=== PATIENT | female | born 1975 | race Caucasian/White ===

== ENCOUNTER 2018-05-10 08:58 | Observation (INO) | payer OTHER ==
[~2018-05-10] VITALS: Ht 175.3 cm; Wt 89.6 kg
[~2018-05-10 08:58] MED LIST: AMIT50TA14 PO; DICY10CA88 PO; HYDR-3973 PO; OXYC10TA47 PO; PROC-8 PO; TRAM50TA2 PO; TRAZ-89 PO; [UNRECOGNIZED DRUG - CODE] PO
[2018-05-10 09:18] LABS: BASOPHILS % (AUTO) 0.3 % (0-1); EOSINOPHILS # (AUTO) 0.1 X10'3 (0-0.9); EOSINOPHILS % (AUTO) 2.2 % (0-6); HEMATOCRIT 37.9 % (35.0-45.0); HEMOGLOBIN 13.2 g/dl (12.0-16.0); LYMPHOCYTES % (AUTO) 15.6 % (21-51); MEAN CORPUSCULAR HEMOGLOBIN 32.4 PG (27.0-31.0); MEAN CORPUSCULAR HGB CONC 34.9 % (33.0-36.5); MEAN CORPUSCULAR VOLUME 92.8 FL (78-98); MEAN PLATELET VOLUME 8.6 FL (7.4-10.4); MONOCYTES # (AUTO) 0.4 X10'3 (0-0.9); MONOCYTES % (AUTO) 5.8 % (2-12); NEUTROPHILS # (AUTO) 5.1 X10'3 (1.8-7.7); NEUTROPHILS % (AUTO) 76.1 % (42-75); PLATELET COUNT 183 X10'3 (140-440); RED BLOOD COUNT 4.08 X10'6 (4.20-5.60); RED CELL DISTRIBUTION WIDTH 13.8 % (11.5-14.5); WHITE BLOOD COUNT 6.7 X10'3 (4.5-11.0)
[2018-05-10 09:28] LABS: PARTIAL THROMBOPLASTIN TIME 26 SECONDS (22-32); PROTHROMBIN TIME 10.1 SECONDS (9.0-12.0)
[2018-05-10 09:36] LABS: ALANINE AMINOTRANSFERASE 19 U/L (12-78); ALBUMIN 3.8 G/DL (3.4-5.0); ALBUMIN/GLOBULIN RATIO 1.2 (1.1-1.5); ALKALINE PHOSPHATASE 38 IU/L (46-116); ANION GAP 9 (8-16); ASPARTATE AMINO TRANSFERASE 15 U/L (10-37); BILIRUBIN,TOTAL 0.3 MG/DL (0.1-1.0); BLOOD UREA NITROGEN 10 MG/DL (7-18); BUN/CREATININE RATIO 13.2 (6.6-38.0); CALCIUM 9.1 MG/DL (8.5-10.1); CHLORIDE 101 MMOL/L (99-107); CREATININE 0.76 MG/DL (0.40-0.90); GLUCOSE 123 MG/DL (70-104); POTASSIUM 3.9 MMOL/L (3.5-5.1); SODIUM 139 MMOL/L (135-145); TOTAL CARBON DIOXIDE 28.9 MMOL/L (24-32); TOTAL PROTEIN 7.1 G/DL (6.4-8.2); eGFR 84 ML/MIN
[2018-05-10] MEDS ORDERED: morphine 4 MG/ML inj SYRINge IV ONE (09:55)
[2018-05-10] MEDS ORDERED: aspirin 325mg tablet PO ONE (09:55)
[2018-05-10] MEDS ORDERED: ondansetron/PF 4mg/2ml inj IV ONE (09:55)
[2018-05-10] MEDS ORDERED: magnesium 4gm in 100ml NS 100 ML IV PRN (10:00)
[2018-05-10] MEDS ORDERED: mag hydrox/Alum hydrox/simeth 30ml oral suspension PO PRN (10:00)
[2018-05-10] MEDS ORDERED: potassium Cl 20 mEq SR tablet PO PRN ×2 (10:00)
[2018-05-10] MEDS ORDERED: magnesium 1gm/100ml D5W IVPB 100 ML IV PRN (10:00)
[2018-05-10] MEDS ORDERED: HYDROcodone/acetaminophen 5mg/325mg tablet PO PRN (10:00)
[2018-05-10] MEDS ORDERED: magnesium hydroxide 30ml (MOM) UD suspension PO PRN (10:00)
[2018-05-10] MEDS ORDERED: acetaminophen 325mg tablet PO PRN (10:00)
[2018-05-10] MEDS ORDERED: magnesium Cl slow-release 64mg tablet PO PRN (10:00)
[2018-05-10] MEDS ORDERED: ondansetron/PF 4mg/2ml inj IV PRN (10:00)
[2018-05-10] MEDS ORDERED: potassium Cl 40MEQ/NS 500ml 500 ML IV PRN ×2 (10:00)
[2018-05-10] MEDS ORDERED: regadenoson 0.4mg/5ml syringe IV PRN (10:15)
[2018-05-10] MEDS ORDERED: proCHLORperazine 10 MG/2 ml inj IV ONE (10:15)
[2018-05-10] MEDS ORDERED: nitroGLYCERIN 0.4mg SUBLingual tab SL PRN (10:15)
[2018-05-10] MEDS ORDERED: CAFFEINE CITRATE 60 MG/3 ML injection vial IV PRN (10:15)
[2018-05-10] MEDS ORDERED: metoprolol tartrate 1mg/ml inj IV PRN (10:15)
[2018-05-10] MEDS ORDERED: PARO40TA4 PO (10:30)
[2018-05-10] MEDS ORDERED: AMLO2.5T PO (10:30)
[2018-05-10 10:33] LABS: HEMOGLOBIN A1C 5.7 % (4.5-6.2)
[2018-05-10] MEDS: morphine 4 MG/ML inj SYRINge IV PRN ×3 (11:37→19:31)
[2018-05-10 12:15] VITALS: BP 130/80
[2018-05-10] MEDS ORDERED: TRAZ-89 PO (12:52)
[2018-05-10] MEDS ORDERED: TRAZ-143 PO (12:52)
[2018-05-10] MEDS ORDERED: traMADol 50MG tablet PO PRN (13:55)
[2018-05-10] MEDS: HYDROcodone/acetaminophen 10/325mg tab PO PRN (17:35)
[2018-05-10 19:00] VITALS: BP 138/89
[2018-05-10] MEDS ORDERED: traZODone 50mg tablet PO SCH (21:00)
[2018-05-10 23:00] VITALS: BP 114/70
[2018-05-11] VITALS (10 sets, daily range): BP systolic 104–141; BP diastolic 56–89
[2018-05-11 05:06] LABS: BASOPHILS % (AUTO) 0.4 % (0-1); EOSINOPHILS # (AUTO) 0.1 X10'3 (0-0.9); EOSINOPHILS % (AUTO) 2.4 % (0-6); HEMATOCRIT 36.6 % (35.0-45.0); HEMOGLOBIN 12.6 g/dl (12.0-16.0); LYMPHOCYTES # (AUTO) 1.1 X10'3 (1.1-4.8); LYMPHOCYTES % (AUTO) 25.5 % (21-51); MEAN CORPUSCULAR HEMOGLOBIN 31.7 PG (27.0-31.0); MEAN CORPUSCULAR HGB CONC 34.5 % (33.0-36.5); MEAN CORPUSCULAR VOLUME 92.2 FL (78-98); MONOCYTES # (AUTO) 0.3 X10'3 (0-0.9); MONOCYTES % (AUTO) 6.4 % (2-12); NEUTROPHILS # (AUTO) 2.9 X10'3 (1.8-7.7); NEUTROPHILS % (AUTO) 65.3 % (42-75); PLATELET COUNT 170 X10'3 (140-440); RED BLOOD COUNT 3.97 X10'6 (4.20-5.60); RED CELL DISTRIBUTION WIDTH 13.7 % (11.5-14.5); WHITE BLOOD COUNT 4.5 X10'3 (4.5-11.0)
[2018-05-11 05:26] LABS: ALBUMIN 3.2 G/DL (3.4-5.0); CHLORIDE 105 MMOL/L (99-107); GLUCOSE 92 MG/DL (70-104); POTASSIUM 3.7 MMOL/L (3.5-5.1)
[2018-05-11 05:59] LABS: ALANINE AMINOTRANSFERASE 16 U/L (12-78); ALBUMIN/GLOBULIN RATIO 1.1 (1.1-1.5); ALKALINE PHOSPHATASE 32 IU/L (46-116); ANION GAP 7 (8-16); ASPARTATE AMINO TRANSFERASE 10 U/L (10-37); BILIRUBIN,TOTAL 0.3 MG/DL (0.1-1.0); BLOOD UREA NITROGEN 13 MG/DL (7-18); BUN/CREATININE RATIO 18.6 (6.6-38.0); CALCIUM 8.6 MG/DL (8.5-10.1); CHOL/HDL RATIO 5.9 (0.00-4.99); CHOLESTEROL 202 MG/DL (0-200); HDL CHOLESTEROL 34 MG/DL (35-60); LDL CHOLESTEROL 124 MG/DL (50-100); MAGNESIUM 2.1 MG/DL (1.5-2.4); SODIUM 140 MMOL/L (135-145); TOTAL CARBON DIOXIDE 28.5 MMOL/L (24-32); TOTAL PROTEIN 6.2 G/DL (6.4-8.2); TRIGLYCERIDES 286 MG/DL (20-135); eGFR > 90 ML/MIN
[2018-05-11] MEDS: HYDROcodone/acetaminophen 10/325mg tab PO PRN ×2 (07:10→12:40)
[2018-05-11] MEDS ORDERED: amLODIPine 2.5mg tablet PO SCH (08:00)
[2018-05-11] MEDS ORDERED: K and/or MAG REPLACEMENT MC SCH (08:00)
[2018-05-11] MEDS ORDERED: enoxaparin 40mg/0.4ml syringe SUBCUT SCH (08:00)
[2018-05-11] MEDS ORDERED: PARoxetine 20mg tablet PO SCH (08:00)
[2018-05-11] MEDS ORDERED: non-formulary drug (Paroxetine HCl 1 TAB) PO SCH (08:00)
[2018-05-11] MEDS ORDERED: regadenoson 0.4mg/5ml syringe IV ONE (09:56)
[2018-05-11] MEDS ORDERED: CAFFEINE CITRATE 60 MG/3 ML injection vial IV ONE (09:56)
[2018-05-11] MEDS: morphine 4 MG/ML inj SYRINge IV PRN ×2 (11:13→15:09)
[2018-05-11] MEDS ORDERED: ketorolac tromethamine 15mg/ml inj. IV ONE (15:00)
[2018-05-11] MEDS ORDERED: GEMF600T PO (15:07)
[2018-05-11] MEDS ORDERED: ASPI-611 PO (15:07)
[2018-05-11] MEDS ORDERED: ATOR20TA66 PO (15:07)
[2018-05-11] MEDS ORDERED: gemfibrozil 600mg tablet PO SCH (20:00)
[2018-05-12] MEDS ORDERED: atorvastatin 20mg tablet PO SCH (08:00)
== END 2018-05-11 16:46 | disposition home or self-care (01) ==
LOC: ER 08:58 → UNDOADMIN 09:56 → ED HOLD 09:56 → PCU 3S 11:55
PROVIDERS: ADMIT Internal Medicine; ATTEND Internal Medicine
DX: R07.89 Other chest pain (principal); E78.5 Hyperlipidemia, unspecified; F17.210 Nicotine dependence, cigarettes, uncomplicated; I25.10 Atherosclerotic heart disease of native coronary artery without angina pectoris; E66.01 Morbid (severe) obesity due to excess calories; I48.91 Unspecified atrial fibrillation; M79.7 Fibromyalgia; M54.9 Dorsalgia, unspecified; G89.29 Other chronic pain; I25.2 Old myocardial infarction; I10 Essential (primary) hypertension; Z79.82 Long term (current) use of aspirin
CPT/HCPCS: 36415; 71045; 78452; 80053; 80061; 83036; 83735; 84484; 85025; 85610; 85730; 87070; 93005; 93017; 93306; 96374; 96375; 96376; 99285; A9500; G0378; J1885; J2270; J2405; J1650

== ENCOUNTER 2018-07-08 11:31 | Emergency (ER) | payer OTHER ==
[~2018-07-08] VITALS: Ht 175.3 cm; Wt 81.8 kg
[~2018-07-08 11:31] MED LIST changes: -AMIT50TA14 PO; +AMLO2.5T3 PO; +ATOR20TA66 PO; -DICY10CA88 PO; +GEMF600T PO; -OXYC10TA47 PO; +PARO40TA4 PO; -PROC-8 PO; +TRAZ-218 PO; -TRAZ-89 PO; -[UNRECOGNIZED DRUG - CODE] PO
[2018-07-08] MEDS ORDERED: buPROPion 75mg tablet PO STA (12:29)
[2018-07-08] MEDS ORDERED: buprenorphine/naloxone 2-0.5mg sublingual tablet SL STA (12:37)
[2018-07-08] MEDS ORDERED: buprenorphine/naloxone 8mg/2mg SL tablet SL STA ×3 (12:40→13:32)
[2018-07-08 13:17] VITALS: BP 157/95
[2018-07-08] MEDS ORDERED: ondansetron 4mg rapidly disintigrating tab PO ONE (13:35)
[2018-07-08] MEDS ORDERED: ONDA8TAB9 PO (13:38)
== END 2018-07-08 14:05 | disposition home or self-care (01) ==
LOC: ER 11:31
DX: F11.23 Opioid dependence with withdrawal (principal); I10 Essential (primary) hypertension; I25.2 Old myocardial infarction; G89.29 Other chronic pain; I48.91 Unspecified atrial fibrillation; Z91.018 Allergy to other foods; Z91.010 Allergy to peanuts; Z88.8 Allergy status to other drugs, medicaments and biological substances; Z79.899 Other long term (current) drug therapy
CPT/HCPCS: 99283

== ENCOUNTER 2019-02-07 07:29 | Emergency (ER) | payer MEDICAID, OTHER ==
[~2019-02-07] VITALS: Ht 175.3 cm; Wt 81.8 kg
[~2019-02-07 07:29] MED LIST changes: -AMLO2.5T3 PO; +AMLO2.5T5 PO; +ONDA8TAB9 PO
[2019-02-07] MEDS ORDERED: normal saline 1000ML IV soln IVB ONE (08:45)
[2019-02-07] MEDS ORDERED: proCHLORperazine 10 MG/2 ml inj IV ONE (08:45)
[2019-02-07] MEDS: morphine 4 MG/ML inj SYRINge IV PRN ×2 (09:18→10:24)
[2019-02-07 09:24] LABS: BASOPHILS % (AUTO) 0.6 % (0-1); EOSINOPHILS % (AUTO) 0.7 % (0-6); HEMATOCRIT 37.3 % (35.0-45.0); HEMOGLOBIN 12.8 g/dl (12.0-16.0); LYMPHOCYTES # (AUTO) 1.3 X10'3 (1.1-4.8); MEAN CORPUSCULAR HEMOGLOBIN 31.2 PG (27.0-31.0); MEAN CORPUSCULAR HGB CONC 34.4 g/dL (33.0-36.5); MEAN CORPUSCULAR VOLUME 90.8 FL (78-98); MEAN PLATELET VOLUME 8.8 FL (7.4-10.4); MONOCYTES # (AUTO) 0.5 X10'3 (0-0.9); MONOCYTES % (AUTO) 7.5 % (2-12); NEUTROPHILS # (AUTO) 4.3 X10'3 (1.8-7.7); NEUTROPHILS % (AUTO) 70.2 % (42-75); PLATELET COUNT 161 X10'3 (140-440); RED BLOOD COUNT 4.11 X10'6 (4.20-5.60); RED CELL DISTRIBUTION WIDTH 14.1 % (11.5-14.5); WHITE BLOOD COUNT 6.2 X10'3 (4.5-11.0)
[2019-02-07 09:41] LABS: ALANINE AMINOTRANSFERASE 24 U/L (12-78); ALBUMIN 3.6 G/DL (3.4-5.0); ALBUMIN/GLOBULIN RATIO 1.2 (1.1-1.5); ALKALINE PHOSPHATASE 37 IU/L (46-116); ANION GAP 7 (8-16); ASPARTATE AMINO TRANSFERASE 14 U/L (10-37); BILIRUBIN,TOTAL 0.2 MG/DL (0.1-1.0); BLOOD UREA NITROGEN 9 MG/DL (7-18); BUN/CREATININE RATIO 12.2 (6.6-38.0); CALCIUM 8.7 MG/DL (8.5-10.1); CHLORIDE 104 MMOL/L (99-107); CREATININE 0.74 MG/DL (0.40-0.90); GLUCOSE 93 MG/DL (70-104); LIPASE 156 U/L (73-393); POTASSIUM 3.9 MMOL/L (3.5-5.1); SODIUM 138 MMOL/L (135-145); TOTAL CARBON DIOXIDE 26.6 MMOL/L (24-32); TOTAL PROTEIN 6.6 G/DL (6.4-8.2); eGFR 86 ML/MIN
[2019-02-07 10:10] LABS: CLARITY,URINE CLEAR (Clear); COLOR,URINE YELLOW (Yellow); GLUCOSE, URINE NEGATIVE (Neg); KETONES,URINE NEGATIVE (Neg); LEUKOCYTE ESTERASE ,URINE TRACE (Neg); NITRITES, URINE NEGATIVE (Neg); OCCULT BLOOD,URINE TRACE-LYSED (Neg); PH,URINE 7.5 (4.8-8.0); PROTEIN,URINE NEGATIVE (Neg); UROBILINOGEN,URINE 0.2 E.U/dL (0.2-1.0)
[2019-02-07 10:14] LABS: UA COLLECTION TYPE CLN CATCH MIDSTREAM; URINE HCG NEGATIVE (NEG)
[2019-02-07 10:15] LABS: RBC,URINE 0-2 /HPF (0-2); WBC,URINE 0-4 /HPF (0-4)
[2019-02-07 10:16] LABS: BACTERIA,URINE FEW /HPF (Neg); MUCUS STRANDS NONE SEEN /LPF (Neg); SQUAMOUS EPITHELIAL CELL,UR FEW /LPF (FEW)
[2019-02-07 10:25] VITALS: BP 116/51
== END 2019-02-07 10:41 | disposition home or self-care (01) ==
LOC: ER 07:29
DX: R10.31 Right lower quadrant pain (principal); I10 Essential (primary) hypertension; I48.91 Unspecified atrial fibrillation; I25.2 Old myocardial infarction; G89.29 Other chronic pain; M54.9 Dorsalgia, unspecified; Z88.6 Allergy status to analgesic agent; Z91.010 Allergy to peanuts; Z88.8 Allergy status to other drugs, medicaments and biological substances; Z91.018 Allergy to other foods
CPT/HCPCS: 36415; 74176; 80053; 81001; 81025; 83690; 85025; 85610; 87088; 96374; 96375; 96376; 99284; J0780; J2270; J7030

== ENCOUNTER 2019-03-19 11:39 | Emergency (ER) | payer MEDICAID ==
[~2019-03-19] VITALS: Ht 175.3 cm; Wt 81.8 kg
[~2019-03-19 11:39] MED LIST changes: -TRAZ-218 PO; +TRAZ-251 PO
[2019-03-19 12:12] LABS: BASOPHILS % (AUTO) 0.4 % (0-1); EOSINOPHILS # (AUTO) 0.1 X10'3 (0-0.9); EOSINOPHILS % (AUTO) 1.2 % (0-6); HEMATOCRIT 36.4 % (35.0-45.0); HEMOGLOBIN 12.8 g/dl (12.0-16.0); LYMPHOCYTES # (AUTO) 1.6 X10'3 (1.1-4.8); LYMPHOCYTES % (AUTO) 27.7 % (21-51); MEAN CORPUSCULAR HEMOGLOBIN 32.1 PG (27.0-31.0); MEAN CORPUSCULAR VOLUME 91.5 FL (78-98); MEAN PLATELET VOLUME 9.1 FL (7.4-10.4); MONOCYTES # (AUTO) 0.4 X10'3 (0-0.9); MONOCYTES % (AUTO) 6.5 % (2-12); NEUTROPHILS # (AUTO) 3.7 X10'3 (1.8-7.7); NEUTROPHILS % (AUTO) 64.2 % (42-75); PLATELET COUNT 159 X10'3 (140-440); RED BLOOD COUNT 3.98 X10'6 (4.20-5.60); RED CELL DISTRIBUTION WIDTH 13.7 % (11.5-14.5); WHITE BLOOD COUNT 5.8 X10'3 (4.5-11.0)
[2019-03-19 12:15] LABS: URINE HCG NEGATIVE (NEG)
[2019-03-19] MEDS ORDERED: fentaNYL/PF 50MCG/1 ML 2ML syringe IV ONE (12:20)
[2019-03-19] MEDS ORDERED: normal saline 1000ml 1,000 ML IV ONE (12:20)
[2019-03-19] MEDS ORDERED: ketorolac trometh. 30mg/ml inj. IV ONE (12:20)
[2019-03-19] MEDS ORDERED: acetaminophen 325mg tablet PO ONE (12:20)
[2019-03-19] MEDS ORDERED: proCHLORperazine 10 MG/2 ml inj IV ONE (12:20)
[2019-03-19 12:23] LABS: ALANINE AMINOTRANSFERASE 19 U/L (12-78); ALBUMIN 3.7 G/DL (3.4-5.0); ALBUMIN/GLOBULIN RATIO 1.2 (1.1-1.5); ALKALINE PHOSPHATASE 40 IU/L (46-116); AMYLASE 42 U/L (25-115); ANION GAP 8 (8-16); ASPARTATE AMINO TRANSFERASE 11 U/L (10-37); BILIRUBIN,TOTAL 0.1 MG/DL (0.1-1.0); BLOOD UREA NITROGEN 8 MG/DL (7-18); BUN/CREATININE RATIO 11.3 (6.6-38.0); CALCIUM 8.8 MG/DL (8.5-10.1); CHLORIDE 100 MMOL/L (99-107); CREATININE 0.71 MG/DL (0.40-0.90); GLUCOSE 127 MG/DL (70-104); LIPASE 188 U/L (73-393); POTASSIUM 3.6 MMOL/L (3.5-5.1); SODIUM 136 MMOL/L (135-145); TOTAL CARBON DIOXIDE 27.7 MMOL/L (24-32); TOTAL PROTEIN 6.8 G/DL (6.4-8.2); eGFR > 90 ML/MIN
[2019-03-19 12:31] LABS: CLARITY,URINE CLEAR (Clear); COLOR,URINE STRAW (Yellow); GLUCOSE, URINE NEGATIVE (Neg); KETONES,URINE NEGATIVE (Neg); LEUKOCYTE ESTERASE ,URINE NEGATIVE (Neg); NITRITES, URINE NEGATIVE (Neg); OCCULT BLOOD,URINE TRACE-INTACT (Neg); PH,URINE 6.5 (4.8-8.0); PROTEIN,URINE NEGATIVE (Neg); UROBILINOGEN,URINE 0.2 E.U/dL (0.2-1.0)
[2019-03-19 12:36] LABS: UA COLLECTION TYPE CLN CATCH MIDSTREAM
[2019-03-19 12:48] LABS: MUCUS STRANDS NONE SEEN /LPF (Neg); SQUAMOUS EPITHELIAL CELL,UR FEW /LPF (FEW)
[2019-03-19 12:49] LABS: BACTERIA,URINE FEW /HPF (Neg); RBC,URINE 0-2 /HPF (0-2); WBC,URINE NONE SEEN /HPF (0-4)
[2019-03-19] MEDS ORDERED: HYDROcodone/acetaminophen 10/325mg tab PO ONE (13:10)
[2019-03-19 13:44] VITALS: BP 115/61
== END 2019-03-19 13:46 | disposition home or self-care (01) ==
LOC: ER 11:40
DX: R10.84 Generalized abdominal pain (principal); G89.29 Other chronic pain; R11.2 Nausea with vomiting, unspecified; R50.9 Fever, unspecified; I48.91 Unspecified atrial fibrillation; I10 Essential (primary) hypertension; I25.2 Old myocardial infarction; Z90.49 Acquired absence of other specified parts of digestive tract; Z98.890 Other specified postprocedural states; Z91.018 Allergy to other foods; Z91.010 Allergy to peanuts; Z88.8 Allergy status to other drugs, medicaments and biological substances; Z79.899 Other long term (current) drug therapy
CPT/HCPCS: 36415; 80053; 81001; 81025; 82150; 83690; 85025; 85610; 96361; 96374; 96375; 99283; J0780; J1885; J3010; J7030

== ENCOUNTER 2021-04-30 11:02 | Emergency (ER) | payer MEDICAID ==
[~2021-04-30] VITALS: Ht 175.3 cm; Wt 86.4 kg
[2021-04-30 12:00] LABS: BASOPHILS % (AUTO) 0.3 % (0-1); EOSINOPHILS # (AUTO) 0.1 X10'3 (0-0.9); EOSINOPHILS % (AUTO) 2.2 % (0-6); HEMOGLOBIN 12.6 g/dl (12.0-16.0); LYMPHOCYTES # (AUTO) 1.7 X10'3 (1.1-4.8); LYMPHOCYTES % (AUTO) 30.2 % (21-51); MEAN CORPUSCULAR HEMOGLOBIN 31.4 PG (27.0-31.0); MEAN CORPUSCULAR HGB CONC 34.1 g/dL (33.0-36.5); MEAN CORPUSCULAR VOLUME 92.1 FL (78-98); MONOCYTES # (AUTO) 0.5 X10'3 (0-0.9); MONOCYTES % (AUTO) 8.7 % (2-12); NEUTROPHILS # (AUTO) 3.4 X10'3 (1.8-7.7); NEUTROPHILS % (AUTO) 58.6 % (42-75); PLATELET COUNT 199 X10'3 (140-440); RED BLOOD COUNT 4.02 X10'6 (4.20-5.60); WHITE BLOOD COUNT 5.7 X10'3 (4.5-11.0)
[2021-04-30 12:39] LABS: ALANINE AMINOTRANSFERASE 31 U/L (12-78); ALBUMIN 3.6 G/DL (3.4-5.0); ALBUMIN/GLOBULIN RATIO 1.1 (1.1-1.5); ALKALINE PHOSPHATASE 42 IU/L (46-116); ANION GAP 7 (8-16); ASPARTATE AMINO TRANSFERASE 27 U/L (10-37); BILIRUBIN,TOTAL 0.3 MG/DL (0.1-1.0); BLOOD UREA NITROGEN 15 MG/DL (7-18); BUN/CREATININE RATIO 18.3 (6.6-38.0); CALCIUM 8.8 MG/DL (8.5-10.1); CHLORIDE 101 MMOL/L (99-107); CREATININE 0.82 MG/DL (0.40-0.90); GLUCOSE 120 MG/DL (70-104); POTASSIUM 3.3 MMOL/L (3.5-5.1); SODIUM 138 MMOL/L (135-145); TOTAL CARBON DIOXIDE 29.9 MMOL/L (24-32); TOTAL PROTEIN 6.9 G/DL (6.4-8.2); eGFR 76 ML/MIN
[2021-04-30] MEDS ORDERED: aspirin 81mg tab.chew PO ONE (13:15)
[2021-04-30] MEDS: nitroGLYCERIN 0.4mg SUBLingual tab SL PRN ×2 (13:31→13:49)
[2021-04-30] MEDS ORDERED: ketorolac tromethamine 15mg/ml inj. IV ONE ×2 (14:35→15:55)
[2021-04-30 14:41] VITALS: BP 130/81
== END 2021-04-30 16:19 | disposition home or self-care (01) ==
LOC: ER 11:02
DX: R07.89 Other chest pain (principal); R11.0 Nausea; R06.02 Shortness of breath; I48.91 Unspecified atrial fibrillation; I10 Essential (primary) hypertension; I25.10 Atherosclerotic heart disease of native coronary artery without angina pectoris; G89.29 Other chronic pain; Z90.49 Acquired absence of other specified parts of digestive tract; Z98.890 Other specified postprocedural states; Z91.010 Allergy to peanuts; Z91.018 Allergy to other foods; Z88.8 Allergy status to other drugs, medicaments and biological substances; Z79.899 Other long term (current) drug therapy
CPT/HCPCS: 36415; 71045; 80053; 83880; 84484; 85025; 93005; 96374; 96376; 99285; J1885

== ENCOUNTER 2022-02-28 09:52 | Emergency (ER) | payer MEDICAID ==
[~2022-02-28] VITALS: Ht 175.3 cm; Wt 86.4 kg
[2022-02-28 10:04] VITALS: BP 134/87
[2022-02-28] MEDS ORDERED: LIDOcaine Viscous 15ml cup MM PRN (11:00)
[2022-02-28] MEDS ORDERED: ibuprofen 200mg tablet PO ONE (11:00)
[2022-02-28] MEDS ORDERED: acetaminophen 325mg tablet PO ONE (11:00)
[2022-02-28] MEDS ORDERED: FLUC150T PO (11:01)
== END 2022-02-28 11:13 | disposition home or self-care (01) ==
LOC: ER 09:53
DX: B37.9 Candidiasis, unspecified (principal); R50.9 Fever, unspecified; I48.91 Unspecified atrial fibrillation; I10 Essential (primary) hypertension; I25.2 Old myocardial infarction; G89.29 Other chronic pain; Z90.49 Acquired absence of other specified parts of digestive tract; Z98.890 Other specified postprocedural states; Z88.8 Allergy status to other drugs, medicaments and biological substances; Z91.010 Allergy to peanuts; Z91.018 Allergy to other foods; Z79.899 Other long term (current) drug therapy
CPT/HCPCS: 99284

== ENCOUNTER 2025-06-01 10:33 | Emergency (ER) | payer MEDICAID ==
[~2025-06-01] VITALS: Ht 175.3 cm; Wt 115.0 kg
[2025-06-01 10:37] VITALS: TEMP 97.7
[2025-06-01 11:32] LABS: MEAN PLATELET VOLUME 9.0 FL (7.4-10.4); RED CELL DISTRIBUTION WIDTH 16.5 % (11.5-14.5)
--- NOTE | 2025-06-01 11:43 | RADIOLOGY REPORT ---
EXAM: CT CT HEAD INDICATION: , trauma TECHNIQUE: CT of the head without intravenous contrast. Radiation Dose : 1. Head: CT Dose: CTDI volume is 73 mGy. Dose-length product is 1297 mGy*cm The dose indicators for CT are the volume Computed Tomography (CT) Dose Index (CTDIvol) and the Dose Length Product (DLP), and are measured in units of mGy and mGy-cm, respectively. These indicators are not patient dose, but values generated from the CT scanner acquisition factors. The report includes radiation exposure data for exposures received during this examination. COMPARISON: None FINDINGS: There is no evidence of acute intracranial hemorrhage, extra-axial collection, mass effect, midline s hift, herniation or hydrocephalus. The ventricles, sulci and cisterns are age appropriate. The washburn-white differentiation is intact. Patchy periventricular and subcortical white matter hypoattenuation is nonspecific but may be related to small vessel ischemic disease. The visualized paranasal sinuses and mastoid air cells are clear. Superficial hematoma is seen in the frontal scalp. Soft tissue swelling is seen in the left periorbit al region. Comminuted nasal bone fracture and left maxillary fracture is partially visualized. IMPRESSION: 1. No acute intracranial abnormality. 2. Comminuted nasal bone fracture and left maxillary fracture is partially visualized. Recommend christos elation with facial CT Radiation optimization: All CT scans at this facility use at least one of these dose optimization kelli hniques: automated exposure control mA and/or kV adjustment per patient size (includes targeted exam s where dose is matched to clinical indication) or iterative reconstruction.
[2025-06-01 11:44] LABS: CREATININE 0.71 MG/DL (0.40-0.90); ETHANOL < 10 MG/DL (<10); TOTAL CARBON DIOXIDE 30.8 MMOL/L (24-32); eCRCL 102 ML/MIN; eGFR 88 ML/MIN
[2025-06-01 11:46] LABS: APTT 27 SECONDS (22-32); INR 1.1 INR
--- NOTE | 2025-06-01 11:49 | RADIOLOGY REPORT ---
EXAM: CT CT CERVICAL SPINE INDICATION: , trauma EXAM DATE: 06/01/2025 11:16 AM COMPARISON: None TECHNIQUE: Multiple axial CT images of the cervical spine were obtained using bone algorithm. Axial a nd coronal reformatting was done. Bone and soft tissue windows were reviewed. Radiation Dose Information: CT Dose: CTDI volume is 20 mGy. Dose-length product is 572 mGy*cm FINDINGS: The cervical alignment is intact. No acute cervical spine fracture is identified. The vertebral body heights are intact. No suspicious osseous lesions are identified. Moderate degenerative changes throughout the cervical spine There is no prevertebral soft tissue swelling. IMPRESSION: 1. No evidence of acute cervical spine fracture or traumatic malalignment. 2. Moderate degenerative changes throughout the cervical spine. All CT scans at this medical facility are performed using dose modulation techniques as appropriate t o a performed exam including the following: Automated exposure control was utilized; adjustment of th e MA and/or KV according to patient size; and use of iterative reconstruction technique.
--- NOTE | 2025-06-01 12:17 | RADIOLOGY REPORT ---
CT CT FACIAL BONES/SOFT TISSUE INDICATION: , trauma EXAM DATE: 06/01/2025 11:17 AM COMPARISON: CT CT HEAD on DOS: 06/01/25 RADIATION DOSE: CTDIvol: 54 mGy, DLP: 875 mGy*cm PROCEDURE: Using the CT scanner, contiguous noncontrast scans were obtained from above the orbital ri ms to below the mandible. Coronal and sagittal reformatted images were then generated. All CT scans at this medical facility are performed using dose modulation techniques as appropriate t o a performed exam including the following: Automated exposure control was utilized; adjustment of th e MA and/or KV according to patient size; and use of iterative reconstruction technique. FINDINGS: Comminuted nasal bone fracture and depressed fracture of the orbital floor with adjacent le ft periorbital and malar soft tissue contusion. Left maxillary and ethmoid sinus fluid opacification is noted. The mastoid air cells and middle ear cavities are normally aerated. IMPRESSION: Comminuted nasal bone fracture and depressed fracture of the orbital floor with adjacent left periorb ital and malar soft tissue contusion.
--- NOTE | 2025-06-01 14:11 | Physician Documentation ---
History of Present Illness ~ Chief Complaint: Mechanical Fall Stated Complaint: FALL Time Seen by MD: 14:10 OK to notify your PCP?: Yes Primary Medical Doctor: paola Source: patient, RN/MD, EMS, RN notes reviewed, EMS notes reviewed, old records Mode of Arrival: EMS Exam Limitations: no limitations HPI This patient was involved in a trauma. She slipped fell on her flip-flops had some items in her hand and was unable to protect herself and landed directly on the cement floor it was outside it is dirty she has some injuries to her forehead as well as left upper brow and left inner eyelid. She has raccoon eyes bilaterally swollen nose C-collar with blood in the nose. There was no loss of consciousness. The patient is in severe pain. Patient denies any loss of consciousness or amnesia. She denies any headache but he is having severe facial pain as well as some active bleeding mostly from the left eye. Patient reports some double vision. Tetanus within 5 Years?: Yes Medication Reconciliation Allergies: Coded Allergies: pineapple (Verified Allergy, Severe, throat swells and can not breath, 07/15/23) hazelnut (Verified Allergy, Unknown, 07/15/23) hydrocodone (Verified Allergy, Unknown, 07/15/23) peanut (Unverified Allergy, Unknown, rash, throat itches , 07/15/23) prednisone (Verified Allergy, Unknown, 07/15/23) ondansetron HCl (Verified Adverse Reaction, Unknown, VOMITING, 07/15/23) Scheduled Amlodipine Besylate (Amlodipine Besylate), 1 TAB PO DAILY, (Reported) Atorvastatin Calcium (Atorvastatin Calcium), 20 MG PO DAILY Doxycycline Hyclate (Doxycycline Hyclate), 1 CAP PO Q12H Gemfibrozil (Lopid), 600 MG PO BID Ondansetron (Zofran Odt), 1 TAB PO Q8H Paroxetine HCl (Paroxetine HCl), 1 TAB PO DAILY, (Reported) Trazodone HCl (Trazodone HCl), 1 TAB PO HS, (Reported) Scheduled PRN Hydrocodone Bit/Acetaminophen (Hydrocodone-Apap 10-325 Tablet), 1 TAB PO Q4H PRN for moderate or severe pain, (Reported) Hydrocodone Bit/Acetaminophen (Hydrocodone-Apap 10-325 Tablet), 1 TAB PO TID PRN PRN for pain Tramadol HCl (Tramadol HCl), 50 MG PO Q6H PRN for mild to moderate pain, (Reported) Past Medical History Past Medical History: Atrial Fibrillation, Hypertension, Myocardial Infarction, Chronic Back Pain, Fibromyalgia Past Surgical History: abdominal surgery, cholecystectomy Other Past Surgical History: angiogram with no intervention Patient History: (CABG) Coronary artery bypass grafting MOTHER, Onset: (CHF) Congestive heart failure MOTHER, Onset: (Cancer) Malignant carcinoid tumor FATHER, , Age: 78, Cause: Cancer, Onset: (DM Type 2) Diabetes mellitus type 2 FATHER, , Age: 78, Cause: Cancer, Onset: Alcohol Use: None Drug Use: none Lives with: Family Lives In: Home Review of Systems All Other Systems at this time: Reviewed and Negative Physical Exam Vital Signs: RN Vital Signs have been reviewed: Yes, Temperature: 97.7, Source: Temporal, Heart Rate: 68, Respiratory Rate: 13, BP: 113/73, Pulse Oximetry: 96, Weight: 115.000 Oxygen Flow Rate: 2.0 Physical Exam General: The patient is well developed, well nourished, nontoxic appearing and is in moderate acute distress. Skin: [place], warm and dry with no rashes. HEENT: Head was normocephalic and traumatic. Eyes - pupils equal, round, reactive to light and accommodation. Extraocular movements were intact. Conjunctivae were nonicteric left inferior lateral conjunctiva has a conjunctival hematoma.. The mouth and oropharynx were clear with moist mucous membranes. There were no pharyngeal exudates or erythema. Nose is slightly deviated with dried blood in bilateral nares as well as bilateral ecchymosis raccoon eyes is noted greater on the right than the left. Multiple lacerations are noted. Left forehead has an 8 cm laceration. Left upper eyelid irregular edges also oblique he has a 6 cm laceration left lower eyelid medial aspect almost involving the nasolacrimal duct is 4 cm. Neck: Supple and nontender. There was no jugular venous distention, lymphadenopathy, thyromegaly or masses. In a C-collar Chest: Clear to auscultation bilaterally without wheezes, rales or rhonchi. No accessory muscle use. No dullness to percussion. Heart: Rate regular and rhythmic. S1, S2. No murmurs. Palpation of the chest wall was normal. No rubs or thrills. Abdomen: Soft, nontender and nondistended. Positive bowel sounds. No guarding or rebound. No hepatosplenomegaly or palpable masses. Extremities: No cyanosis, clubbing or edema. The patient moves all extremities. Pulses were equal and symmetric. Neurologic: Motor sensory grossly intact Psychologic: The patient was oriented to person, place and time. The patient demonstrated appropriate judgement and insight. Procedures Laceration Repair #1: Location: medial forehead Length (cm): 5 Anesthesia: Lidocaine w/ Epi Volume Anesthetic (mls): 2 Prep: irrigated by nurse, irrigated by physician Debrided: minimal Undermining: none Margins: revised Foreign Body: not identified Repaired: skin Wound Repaired With: sutures Suture Size/Type: 5-0, prolene Number of Superficial Sutures: 10 Layer Closure?: No Dressing Applied: non-adherent Splint Applied?: No Sling Applied?: No Tolerated Procedure Well?: yes, no complications Procedure Note Patient tolerated procedure well. Completed by YELITZA Lopez. Laceration Repair #2: Location: left upper eyelid below eyebrow Length (cm): 6 Anesthesia: Lidocaine w/ Epi Volume Anesthetic (mls): 2 Prep: irrigated by nurse, irrigated by physician Debrided: minimal Undermining: none Margins: revised Foreign Body: not identified Repaired: skin Wound Repaired With: sutures Suture Size/Type: 5-0, prolene Number of Superficial Sutures: 7 Layer Closure?: No Splint Applied?: No Sling Applied?: No Tolerated Procedure Well?: yes, no complications Procedure Note Patient tolerated procedure well. Completed by YELITZA Lopez. Laceration Repair #3: Anesthesia: Lidocaine w/ Epi Prep: irrigated by nurse Undermining: none Margins: flaps aligned Foreign Body: not identified Repaired: skin Wound Repaired With: sutures Suture Size/Type: 6-0 Number of Superficial Sutures: 2 Layer Closure?: No Dressing Applied: simple Tolerated Procedure Well?: yes, no complications Progress Results/Orders Reviewed/noted all lab results: Yes Results/Orders Orders - GENEVA COCHRAN MD Ct Cervical Spine (06/01/25 10:49) Ct Facial Bones/Soft Tissue (06/01/25 10:49) Ct Head (06/01/25 10:49) Laceration/I&D Tray Set Up (06/01/25 15:36) Completed Orders - GENEVA COCHRAN MD Cbc/Diff (06/01/25 10:49) Pt Inr (06/01/25 10:49) PTT (06/01/25 10:49) Ethanol (06/01/25 10:49) Drug Screen, Urine (06/01/25 10:49) Ct Cervical Spine (06/01/25 10:49) Ct Facial Bones/Soft Tissue (06/01/25 10:49) Ct Head (06/01/25 10:49) BMP (06/01/25 10:49) Tetanus/Pertuss/Diph Acell/Pf (Boostrix (06/01/25 15:40) Normal Saline 1000ml (0.9% Sodium Chlori (06/01/25 15:40) Normal Saline 1000ml (0.9% Sodium Chlori (06/01/25 15:40) Diazepam Inj (Valium Inj) (06/01/25 15:40) Cefazolin/D5w- 1gm Premix (Ancef 1 Gm-D5 (06/01/25 15:36) Cefazolin 1gm/D5w- Add-[place] (Ancef 1 (06/01/25 15:49) Lidocaine 1% W/Epi 1:100,000 (Xylocaine (06/01/25 15:40) Hydromorphone 1 Mg/Ml/Pf (Dilaudid Inj.) (06/01/25 17:45) Vital Signs 06/01/25 06/01/25 06/01/25 06/01/25 10:37 10:45 11:37 13:01 Temp 97.7 Pulse 68 74 68 68 Resp 22 10 12 14 B/P (MAP) 113/78 130/84 (99) 137/78 (97) 113/73 (86) Pulse Ox 97 93 95 96 O2 Flow Rate 2.0 06/01/25 06/01/25 06/01/25 06/01/25 13:33 14:44 15:57 17:53 Pulse 72 Resp 13 15 16 12 B/P (MAP) 128/85 (99) Pulse Ox 93 O2 Flow Rate 2.0 06/01/25 06/01/25 06/01/25 06/01/25 17:54 18:30 20:00 20:19 Pulse 70 73 64 Resp 18 18 18 B/P (MAP) 156/85 (108) 154/86 (108) 143/96 (112) Pulse Ox 95 92 88 91 O2 Flow Rate 3.0 2.0 06/01/25 20:40 Pulse 64 Resp 18 B/P (MAP) 143/96 Pulse Ox 92 Laboratory Tests Test 06/01/25 10:59 06/01/25 14:10 White Blood Count 6.3 Red Blood Count 4.03 L Hemoglobin 11.6 L Hematocrit 34.5 L Mean Corpuscular Volume 85.7 Mean Corpuscular Hemoglobin 28.8 Mean Corpuscular Hemoglobin Concent 33.6 Red Cell Distribution Width 16.5 H Platelet Count 127 L Mean Platelet Volume 9.0 Neutrophils (%) (Auto) 77.3 H Lymphocytes (%) (Auto) 13.7 L Monocytes (%) (Auto) 6.6 Eosinophils (%) (Auto) 1.8 Basophils (%) (Auto) 0.6 Neutrophils # (Auto) 4.9 Lymphocytes # (Auto) 0.9 L Monocytes # (Auto) 0.4 Eosinophils # (Auto) 0.1 Basophils # (Auto) 0.0 CBC Comment Prothrombin Time 10.9 INR International Normalized Ratio 1.1 Activated Partial Thromboplast Time 27 Coagulation Comments Sodium Level 137 Potassium Level 3.8 Chloride Level 102 Carbon Dioxide Level 30.8 Anion Gap 4 L Blood Urea Nitrogen 9 Creatinine 0.71 Estimated GFR/1.73 m2 88 BUN/Creatinine Ratio 12.7 Glucose Level 142 H Calcium Level 8.6 Albumin 3.8 Chemistry Comments Ethyl Alcohol Level < 10 Urine Opiates Screen Negative Urine Methadone Screen Negative Urine Fentanyl Screen Negative Urine Barbiturates Screen Negative Urine Phencyclidine Screen Negative Urine Amphetamines Screen Negative Urine Benzodiazepines Screen Negative Urine Cocaine Screen Negative Urine Cannabinoids Screen Negative Drug Screen Comment Re-Evaluation Re-Evaluation : Re-Evaluation: Unchanged Progress Patient was seen and examined. Patient was given reassurance. Patient came in with blood in her nares in active bleeding to the forehead. Secondary to a fall. Laboratory work was obtained. CBC WBC was reassuring with a normal white count however there is some slight anemia with a hemoglobin 11.6 and hematocrit of 34.5 slight left shift of 77.3. Patient has had normal hemoglobins in the past but also her last visit in 2022 she was even more anemic. Patient's chemistry is reassuring and within normal limits. Patient's tox screen is negative as well as alcohol level. CT scan unfortunately shows comminuted fracture depressed fracture of the orbital floor. C-spine was moved. nurse monitoring interpretation shows normal sinus rhythm heart rate 70s, no ectopy, normal, my interpretation. Pulse oximetry monitor interpretation shows normal oxygenation 98% room air, normal, my interpretation. EKG/XRAY/CT/US/VASC/MRI CT #1: CT: head Impression EXAM: CT CT HEAD INDICATION: , trauma TECHNIQUE: CT of the head without intravenous contrast. Radiation Dose : 1. Head: CT Dose: CTDI volume is 73 mGy. Dose-length product is 1297 mGy*cm The dose indicators for CT are the volume Computed Tomography (CT) Dose Index (CTDIvol) and the Dose Length Product (DLP), and are measured in units of mGy and mGy-cm, respectively. These indicators are not patient dose, but values generated from the CT scanner acquisition factors. The report includes radiation exposure data for exposures received during this examination. COMPARISON: None FINDINGS: There is no evidence of acute intracranial hemorrhage, extra-axial collection, mass effect, midline shift, herniation or hydrocephalus. The ventricles, sulci and cisterns are age appropriate. The washburn-white differentiation is intact. Patchy periventricular and subcortical white matter hypoattenuation is nonspecific but may be related to small vessel ischemic disease. The visualized paranasal sinuses and mastoid air cells are clear. Superficial hematoma is seen in the frontal scalp. Soft tissue swelling is seen in the left periorbital region. Comminuted nasal bone fracture and left maxillary fracture is partially visualized. IMPRESSION: 1. No acute intracranial abnormality. 2. Comminuted nasal bone fracture and left maxillary fracture is partially visualized. Recommend correlation with facial CT Radiation optimization: All CT scans at this facility use at least one of these dose optimization techniques: automated exposure control mA and/or kV adjustment per patient size (includes targeted exams where dose is matched to clinical indication) or iterative reconstruction. #2: CT: facial bones Impression CT CT FACIAL BONES/SOFT TISSUE INDICATION: , trauma EXAM DATE: 06/01/2025 11:17 AM COMPARISON: CT CT HEAD on DOS: 06/01/25 RADIATION DOSE: CTDIvol: 54 mGy, DLP: 875 mGy*cm PROCEDURE: Using the CT scanner, contiguous noncontrast scans were obtained from above the orbital rims to below the mandible. Coronal and sagittal reformatted images were then generated. All CT scans at this medical facility are performed using dose modulation techniques as appropriate to a performed exam including the following: Automated exposure control was utilized; adjustment of the MA and/or KV according to patient size; and use of iterative reconstruction technique. FINDINGS: Comminuted nasal bone fracture and depressed fracture of the orbital floor with adjacent left periorbital and malar soft tissue contusion. Left maxillary and ethmoid sinus fluid opacification is noted. The mastoid air cells and middle ear cavities are normally aerated. IMPRESSION: Comminuted nasal bone fracture and depressed fracture of the orbital floor with adjacent left periorbital and malar soft tissue contusion. #3: Impression EXAM: CT CT CERVICAL SPINE INDICATION: , trauma EXAM DATE: 06/01/2025 11:16 AM COMPARISON: None TECHNIQUE: Multiple axial CT images of the cervical spine were obtained using bone algorithm. Axial and coronal reformatting was done. Bone and soft tissue windows were reviewed. Radiation Dose Information: CT Dose: CTDI volume is 20 mGy. Dose-length product is 572 mGy*cm FINDINGS: The cervical alignment is intact. No acute cervical spine fracture is identified. The vertebral body heights are intact. No suspicious osseous lesions are identified. Moderate degenerative changes throughout the cervical spine There is no prevertebral soft tissue swelling. IMPRESSION: 1. No evidence of acute cervical spine fracture or traumatic malalignment. 2. Moderate degenerative changes throughout the cervical spine. All CT scans at this medical facility are performed using dose modulation techniques as appropriate to a performed exam including the following: Automated exposure control was utilized; adjustment of the MA and/or KV according to patient size; and use of iterative reconstruction technique. Medical Decision Making Additional info obtained from: old records Differential Dx:Considerations: Include: Closed head injury, Cardiac injury, Fracture(s), Intraabdominal injury, Pneumothorax, Cerebral contusion, Pulmonary contusion, Spine injury, Tracheal injury, Urological injury, Vascular injury, Abrasion(s), Contusion(s), Foreign body(s), Hematoma(s), Laceration(s), Encephalopathy, Other Departure Disposition: 01 HOME / SELF CARE / HOMELESS Impression: Primary Impression: Fracture of orbital floor, blow-out, left, closed Additional Impressions: Nasal fracture Qualified Codes: S02.2XXA - Fracture of nasal bones, initial encounter for closed fracture Complex laceration of face Qualified Codes: S01.91XA - Laceration without foreign body of unspecified part of head, initial encounter Condition: Stable Discharge Instructions: Orbital Fracture Additional Instructions: Follow up with the ENT [place] Suture removal in 7-10 days Any vision changes follow up with Ophthalmology as soon as possible. A backup ENT doctor is [facility] [phone] Referrals: NO PRIMARY CARE PROVIDER (PCP) Prescriptions Doxycycline Hyclate (Doxycycline Hyclate) 100 Mg Capsule 1 CAP PO Q12H for 10 Days, #20 CAP Prov: GENEVA COCHRAN MD 06/01/25 Hydrocodone Bit/Acetaminophen (Hydrocodone-Apap 10-325 Tablet) 10mg/325mg Tablet 1 TAB PO TID PRN PRN for pain for 7 Days, #21 TAB Prov: GENEVA COCHRAN MD 06/01/25 Education Educated: Patient Educated regarding: diagnosis, prognosis, need for follow up, other Critical Care Note Total Time (mins): 30 Critical Care Note The very real possibility of a deterioration of this patient's condition required the highest level of my preparedness for sudden, emergent intervention. I provided critical care services, which included medication orders, frequent reevaluations of the patient's condition and response to treatment, ordering and reviewing test results, and discussing the case with various consultants. Excludes time spent performing separately billable procedures. The critical care time associated with the care of the patient was. 30 minutes Signature Scribe Signature: . Attestation: The note accurately reflects work and decisions made by me.Geneva Cochran MD 06/01/25 15:15 GENEVA COCHRAN MD Jun 01, 2025 14:11 AAYUSH LUX Jun 01, 2025 17:39
[2025-06-01] MEDS: LIDOcaine 1% W/epiNEPHrine 1:100,000 20ml vial SQ ONE (14:24)
[2025-06-01] MEDS: morphine 4 MG/ML inj SYRINge IV ONE (14:44)
[2025-06-01 14:48] LABS: URINE AMPHETAMINE SCREEN NEGATIVE (Neg); URINE BARBITUATE SCREEN NEGATIVE (Neg); URINE BENZODIAZEPINES SCREEN NEGATIVE (Neg); URINE CANNABINOID SCREEN NEGATIVE (Neg); URINE COCAINE SCREEN NEGATIVE (Neg); URINE METHADONE SCREEN NEGATIVE (Neg); URINE OPIATE SCREEN NEGATIVE (Neg); URINE PHENCYCLIDINE SCREEN NEGATIVE (Neg)
[2025-06-01] MEDS ORDERED: ceFAZolin/D5W- 1GM premix 50 ML IV STA (15:36)
[2025-06-01] MEDS: TETanus/Pertussis (Acell)/Diphther VAC/PF (Tdap-Adult) 0.5ml syringe IMVAC ONE (15:51)
[2025-06-01] MEDS: diazepam inj 5 MG/ML inj. IV ONE (15:52)
[2025-06-01] MEDS: normal saline 1000ML IV soln IVB ONE (15:52)
[2025-06-01] MEDS: ceFAZolin 1GM/D5W- ADD-VANTAGE 50 ML IV STA (16:12)
[2025-06-01] MEDS: LIDOcaine 1% W/epiNEPHrine 1:100,000 20ml vial IJ ONE (16:29)
[2025-06-01] MEDS: normal saline 1000ml 1,000 ML IV ONE (17:49)
[2025-06-01] MEDS ORDERED: HYDR-3973 PO (19:21)
[2025-06-01] MEDS ORDERED: DOXY-1 PO (19:21)
[2025-06-01 20:40] VITALS: BP 143/96; PULSE 64; RESP 18; O2SAT 92
== END 2025-06-01 20:37 | disposition home or self-care (01) ==
LOC: ER 10:34
DX: S02.32XA Fracture of orbital floor, left side, initial encounter for closed fracture (principal); S02.2XXA Fracture of nasal bones, initial encounter for closed fracture; S01.81XA Laceration without foreign body of other part of head, initial encounter; M79.7 Fibromyalgia; E11.9 Type 2 diabetes mellitus without complications; I10 Essential (primary) hypertension; I25.2 Old myocardial infarction; I48.91 Unspecified atrial fibrillation; Z88.5 Allergy status to narcotic agent; Z88.8 Allergy status to other drugs, medicaments and biological substances; Z90.49 Acquired absence of other specified parts of digestive tract; Z95.1 Presence of aortocoronary bypass graft; W01.0XXA Fall on same level from slipping, tripping and stumbling without subsequent striking against object, initial encounter; Y93.89 Activity, other specified; Y92.89 Other specified places as the place of occurrence of the external cause; Y99.8 Other external cause status
CPT/HCPCS: 12016; 36415; 70450; 70486; 72125; 80048; 80305; 80320; 85025; 85610; 85730; 90471; 90715; 96361; 96365; 96375; 99291; J0690; J1171; J2270; J3360; J7030; 99285; A4620; A6449